=== PATIENT | female | born 1955 | race Asian ===

== ENCOUNTER 2018-02-17 09:51 | Emergency (ER) | payer OTHER ==
[~2018-02-17] VITALS: Ht 149.9 cm; Wt 50.9 kg
[2018-02-17 12:11] LABS: Basophils # (auto) 0.1 uL; Basophils % (auto) 1.3 % (0.0-2.0); Eosinophils # (auto) 0.2 uL; Eosinophils % (auto) 2.6 % (0.0-7.0); Hematocrit 36.8 % (36.0-46.0); Hemoglobin 12.1 g/dL (12.2-16.2); Lymphocytes # (auto) 1.6 uL; Lymphocytes % (auto) 27.3 % (10.0-50.0); Mean Corpuscular Hemoglobin 31.3 pg (28.0-32.0); Mean Corpuscular Volume 94.9 fL (80.0-100.0); Monocytes # (auto) 0.3 uL; Monocytes % (auto) 5.8 % (0.0-12.0); Neutrophils # (auto) 3.6 uL; Nucleated Red Blood Cells % 0.1 %; Platelet Count (auto) 326 10^3/uL (140-450); Red Blood Cells 3.87 10^6/uL (4.0-5.20); Red Cell Distribution Width 13.8 % (11.8-14.3); White Blood Cell 5.7 10^3/uL (4.4-10.8)
[2018-02-17 12:21] LABS: BUN/Creatinine Ratio 24.2; Calcium 9.2 mg/dL (8.5-10.1); Potassium 4.7 mmol/L (3.5-5.1)
[2018-02-17 12:47] VITALS: BP 101/68
== END 2018-02-17 12:49 | disposition home or self-care (01) ==
LOC: ER 09:51
DX: B34.9 Viral infection, unspecified (principal)
CPT/HCPCS: 36415; 80048; 85025